=== PATIENT | female | born 1960 | race Caucasian/White ===

== ENCOUNTER 2024-06-23 15:39 | Emergency (ER) | payer OTHER, BC ==
[2024-06-23] MEDS ORDERED: KETOROLAC TROMETHAMINE 30 MG/1 ML VIAL ONE (15:49)
[2024-06-23] MEDS: KETOROLAC TROMETHAMINE 30 MG/1 ML VIAL IM ONE (15:51)
[2024-06-23 16:18] VITALS: BP 151/75; PULSE 100; RESP 18; TEMP 98.1; BMI 28.3
[2024-06-23 16:32] LABS: HEMATOCRIT 38.8 % (32.4-45.2); HEMOGLOBIN 13.2 G/dL (10.7-15.3); MCH 30.5 pg (25.7-33.7); MCHC 34.1 g/dl (32.0-36.0); MEAN CELL VOLUME 89.7 fl (80-96); MEAN PLT VOLUME 8.9 fl (7.5-11.1); PLATELET COUNT 128.8 10^3/uL (134-434); RBC 4.33 10^6/uL (3.60-5.2); RDW 13.5 % (11.6-15.6); WHITE BLOOD COUNT 3.1 10^3/uL (4.0-10.8)
[2024-06-23 16:45] LABS: ALBUMIN 4.4 g/dl (3.4-5.0); BILIRUBIN,TOTAL 0.6 mg/dl (0.2-1); CALCIUM 8.9 mg/dl (8.5-10.1); POTASSIUM 4.2 mmol/L (3.5-5.1); TOT PROT 6.6 g/dl (6.4-8.2)
[2024-06-23 18:18] LABS: HIV INTERPRETATION NEGATIVE (NEGATIVE)
[2024-06-23 20:38] LABS: PLATELET ESTIMATE SLT DECREASE
== END 2024-06-23 17:16 | disposition home or self-care (01) ==
LOC: FER 15:39
PROC: 3E0133Z Introduction of Anti-inflammatory into Subcutaneous Tissue, Percutaneous Approach (ICD-10-PCS; principal; 2024-06-23)
DX: R07.89 Other chest pain (principal); M25.512 Pain in left shoulder; R20.0 Anesthesia of skin
CPT/HCPCS: 36415; 71046-TC-FY; 71101-TC-LT-FY; 80053; 84484; 85027; 86803; 87389; 93005; 99285-25